=== PATIENT | female | born 1980 | race Caucasian/White ===

== ENCOUNTER 2016-03-26 06:47 | Emergency (ER) ==
[2016-03-26 07:06] LABS: URINE MICRO REVIEW NEEDED? NO; URINE SOURCE CLEAN CATCH
[2016-03-26 07:13] LABS: BILIRUBIN URINE NEGATIVE (NEGATIVE); BLOOD URINE TRACE (NEGATIVE); COLOR YELLOW; GLUCOSE URINE NEGATIVE (NEGATIVE); LEUKOCYTES URINE TRACE (NEGATIVE); NITRITE URINE NEGATIVE (NEGATIVE); PROTEIN URINE TRACE mg/dL (NEGATIVE); SP GRAVITY URINE 1.024; TURBIDITY URINE CLEAR (CLEAR); UROBILINOGEN URINE NORMAL (NORMAL)
[2016-03-26 07:14] LABS: UR EPITHELIAL CELLS <10 /HPF (<10); URINE BACTERIA 2+ /HPF; URINE CULTURE NEEDED? YES; URINE RBC <10 /HPF (<10)
[2016-03-26 07:32] LABS: MANUAL DIFF NEEDED? NO
[2016-03-26 07:37] LABS: BASO% 0.2 % (0.0-0.8); EOS# 0.01 X1000 (0.0-0.7); EOS% 0.2 % (0.0-10.0); HEMATOCRIT 45.9 % (37.0-47.0); HEMOGLOBIN 15.4 g/dL (12.0-16.0); LYMPH# 0.89 X1000 (1.2-3.4); LYMPH% 15.7 % (20.5-51.1); MCH 28.5 PG (27-31); MCHC 33.6 g/dL (33-37); MCV 84.8 FL (81-99); MONO# 0.22 X1000 (0.11-0.59); MONO% 3.9 % (1.7-9.3); MPV 9.7 FL (7.4-10.4); PLT 320 X1000 (130-400); RBC 5.41 XMIL (4.2-5.4)
[2016-03-26 07:58] LABS: AGAP 13; ALBUMIN 3.7 g/dL (3.5-5.0); ALKALINE PHOSPHATASE 50 U/L (32-104); AMYLASE 39 U/L (20-200); BUN 10 mg/dL (8-22); CALCIUM 8.3 mg/dL (8.8-10.2); CHLORIDE 101 mmol/L (98-107); COSMO 271; GOT 16 U/L (10-30); GPT 11 U/L (10-36); LIPASE 24 U/L (13-60); SODIUM 136 mmol/L (136-145); TCO2 22 mmol/L (25-35); TOTAL BILIRUBIN 0.23 mg/dL (0.20-1.00); TOTAL PROTEIN 7.3 g/dL (6.3-8.3)
[2016-03-26] MEDS ORDERED: ZOFRAN IV ONE (08:48)
--- NOTE | 2016-03-26 09:01 | PROVIDER DOCUMENTATION ---
HPI-Abdominal Pain/GI Problem - General Chief Complaint: Abdominal Pain Stated Complaint: ABD PAIN/NAUSEA Time Seen by Provider: 03/26/16 07:13 Source: patient Allergies/Adverse Reactions: Patient Allergies Allergy/AdvReac Type Severity Reaction Status Date / Time No Known Allergies Allergy Verified 03/26/16 07:27 - History of Present Illness-ABD Nature of Presenting Problems: patient is a 35 yo F that presents to the ER with n/v x 3 days with no diarrhea , fever, or dysuria. She took Nuvaring out thinking it was the source. patient reports pain after eating. Abdominal Pain Onset Location: reports: RUQ, LUQ Pain Radiation: reports: no radiation Quality of Pain: reports: aching, cramping Severity in ED: reports: mild Onset/Duration: reports: gradual, 3 days ago Timing: reports: still present, constant Activities at Onset: reports: none Modifying Factors: worse with: eating Associated Symptoms: reports: nausea, vomiting. denies: constipation, diarrhea , fever/chills, genitourinary problems, shortness of breath Similar Symptoms Previously?: No Recently seen or treated by another doctor?: No Review of Systems - Adult - REVIEW OF SYSTEMS - ADULT Constitutional: denies: chills, fever Eyes: reports: no symptoms reported Ears, Nose, Mouth & Throat: denies: ear pain, sinus problem, throat pain, throat swelling Cardiovascular: denies: chest pain, palpitations Respiratory: denies: cough, shortness of breath, wheezing Gastrointestinal: reports: abdominal pain, nausea, vomiting. denies: constipation, diarrhea Genitourinary: denies: dysuria, frequency, hematuria Musculoskeletal: reports: no symptoms reported Integumentary: reports: no symptoms reported Neurological: reports: no symptoms reported Psychiatric: reports: no symptoms reported Endocrine: reports: no symptoms reported Hematologic/Lymphatic: reports: no symptoms reported Allergic/Immunologic: reports: no symptoms reported All Other Systems: Reviewed and Negative Past History - Adult - PAST MEDICAL HISTORY-ADULT Review of Records: reports: Old Records Reviewed, Nursing Assessment Review, Medications Reviewed - PRIOR SURGERIES/PROCEDURES Surgical/Procedure History: reports: none - IMMUNIZATION STATUS Childhood Immunizations: See Nurse Assessment Flu Vaccine: See Nurse Assessment - FAMILY HISTORY Family History: reviewed, not pertinent - SOCIAL HISTORY Smoking: non-smoker Living Situation: family Physical Exam-General - PHYSICAL EXAM-ADULT Initial Vital Signs Reviewed: Yes - CONSTITUTIONAL General Appearance: alert, mild distress - EYES Eyes: PERRL/EOMI, pink conjunctivae - HEAD, EARS, NOSE, MOUTH & THROAT HENMT: normocephalic/atraumatic, moist mucous membranes, normal ENT inspection - NECK Neck: full range of motion, normal inspection. negative: lymphadenopathy - RESPIRATORY Respiratory: lungs clear, normal breath sounds, no respiratory distress, no accessory muscle use - CARDIOVASCULAR Cardiovascular: no gallop, no murmur, tachycardia - GASTROINTESTINAL (ABDOMEN) Abdominal Exam: normal bowel sounds, non tender, no organomegaly, no pulsatile mass, tenderness (mild upper abdomen across). negative: hepatomegaly, spleenomegaly, McBurney's point tenderness, Belle's sign - MUSCULOSKELETAL Back Exam: no CVA tenderness, no vertebral tenderness Extremity: normal range of motion, normal inspection - SKIN Integumentary: normal color, warm/dry - NEUROLOGIC Neurologic: grossly normal, no motor/sensory deficits - PSYCHIATRIC Psych/Mental Status: normal mood/affect, normal thought content, normal thought process, oriented x 3 Progress - PLAN OF CARE/RESULTS Progress/Plan/Lab Results: plan of care-labs, [id number]-[id number] gb ordered Vital Signs Temp Pulse Resp BP Pulse Ox 03/26/16 10:20 90 18 128/78 98 03/26/16 06:50 97.8 F 109 H 16 131/84 99 No Known Allergies Allergy (Verified 03/26/16 07:27) No Home Medications 03/26/16 I&O 03/25/16 03/26/16 03/27/16 06:59 06:59 06:59 Output Total 20 Balance -20 Laboratory 03/26/16 03/26/16 03/26/16 07:15 07:15 06:55 WBC 5.67 RBC 5.41 H Hgb 15.4 Hct 45.9 MCV 84.8 MCH 28.5 MCHC 33.6 RDW Std Deviation 13.3 Plt Count 320 MPV 9.7 Immature Gran % (Auto) 0.0 Neut % (Auto) 80.0 H Lymph % (Auto) 15.7 L [place] % (Auto) 3.9 Eos % (Auto) 0.2 Baso % (Auto) 0.2 Immature Gran # (Auto) 0.00 Neut # (Auto) 4.54 Lymph # (Auto) 0.89 L [place] # (Auto) 0.22 Eos # (Auto) 0.01 Baso # (Auto) 0.01 Sodium 136 Potassium 4.0 Chloride 101 Carbon Dioxide 22 L Anion Gap 13 BUN 10 Creatinine 0.8 Estimated GFR/1.73 m2 > 60 BUN/Creatinine Ratio 13 Glucose 102 Calculated Osmolality 271 Calcium 8.3 L Total Bilirubin 0.23 AST 16 ALT 11 Alkaline Phosphatase 50 Total Protein 7.3 Albumin 3.7 Globulin 3.6 Albumin/Globulin Ratio 1.0 Amylase 39 Lipase 24 Urine Source CLEAN CATCH Urine Color YELLOW Urine Turbidity CLEAR Urine pH 6.0 Ur Specific [place] 1.024 Urine Protein TRACE A Ur Glucose (Stick) NEGATIVE Ur Ketones (Stick) NEGATIVE Urine Blood TRACE A Urine Nitrite NEGATIVE Urine Bilirubin NEGATIVE Urobilinogen Dipstick NORMAL Urine Leukocytes TRACE A Urine WBC (Auto) 10-20 A Urine RBC (Auto) <10 U Epithel Cells (Auto) <10 Urine Bacteria (Auto) 2+ 03/26/16 06:48 WBC RBC Hgb Hct MCV MCH MCHC RDW Std Deviation Plt Count MPV Immature Gran % (Auto) Neut % (Auto) Lymph % (Auto) [place] % (Auto) Eos % (Auto) Baso % (Auto) Immature Gran # (Auto) Neut # (Auto) Lymph # (Auto) [place] # (Auto) Eos # (Auto) Baso # (Auto) Sodium Potassium Chloride Carbon Dioxide Anion Gap BUN Creatinine Estimated GFR/1.73 m2 BUN/Creatinine Ratio Glucose Calculated Osmolality Calcium Total Bilirubin AST ALT Alkaline Phosphatase Total Protein Albumin Globulin Albumin/Globulin Ratio Amylase Lipase Urine Source Cancelled Urine Color Cancelled Urine Turbidity Cancelled Urine pH Cancelled Ur Specific [place] Cancelled Urine Protein Cancelled Ur Glucose (Stick) Cancelled Ur Ketones (Stick) Cancelled Urine Blood Cancelled Urine Nitrite Cancelled Urine Bilirubin Cancelled Urobilinogen Dipstick Cancelled Urine Leukocytes Cancelled Urine WBC (Auto) Cancelled Urine RBC (Auto) Cancelled U Epithel Cells (Auto) Cancelled Urine Bacteria (Auto) Cancelled Orders Category Date Time Status [ED: Urine Bedside] ORDERED Care 03/26/16 06:57 Active US GB < RUQ (LIMITED) [US] Stat Exams 03/26/16 08:46 Draft AMYLASE [CHEM] Stat Lab 03/26/16 07:15 Completed CBC WITH ELECTRONIC DIFF [HEME] Stat Lab 03/26/16 07:15 Completed COMPREHENSIVE METABOLIC PANEL [CHEM] Stat Lab 03/26/16 07:15 Completed LIPASE [CHEM] Stat Lab 03/26/16 07:15 Completed URINALYSIS W/POSS RFLX CULT [URINALYSIS] Stat Lab 03/26/16 06:55 Completed URINE CULTURE [RM] Routine Lab 03/26/16 07:31 Received Ondansetron [Zofran] Med 03/26/16 08:48 Discontinued 4 mg IV NOW ONE - REASSESSMENT Reassessment #1 Time Reassessed: 10:45 Status: improving Reassessment Comment: feeling better - ULTRASOUND (By Radiology) 1 US Study: Gallbladder Impression: Normal US Results: negative per Departure - Departure Time of Disposition Order: 10:49 DIAGNOSIS: Abdominal pain, Nausea in adult patient, GERD (gastroesophageal reflux disease) , Viral illness Disposition: HOME 01 Certified Medical Emergency: Emergent Condition: Stable Additional Instructions: push fluids f/u with pcp ED Follow Up Instructions: You have been treated by a care provider in the Emergency Department. These instructions are being provided to you so you can have an understanding of how to care for yourself upon discharge. Upon discharge from the Emergency Department, you are responsible for making arrangements for follow-up care by a physician of your choice. Take all prescribed medications as directed. Return to the Emergency Department immediately for any new or worsening symptoms. You may call the Physician Referral phone number at [phone] to obtain a list of Physicians who are taking new patients. Prescriptions: Ondansetron [Zofran Odt] 4 mg PO Q6-8H PRN PRN #20 tab.rapdis PRN Reason: Vomiting Referrals: None,PCP [Primary Care Provider] - Sandra Silverio MD [STAFF PHYSICIAN] - Instructions: Nausea, Adult, Abdominal Pain, Women, Food Choices for Gastroesophageal Reflux Disease, Adult, Gastroesophageal Reflux Disease, Adult Attestation - Scribe Verification/Attestation Scribe:: Baljit Farooq Acting as Scribe for:: Narinder Hooker Scribe documention review:: This chart was documented by a scribe and accurately reflects the service the provider performed and the decisions made by the provider. Physician Attestation - Physician Attestation I, the provider, attest to the following statement:: Narinder Hooker Physician documentation Attestation:: This documentation recorded by the scribe accurately reflects the service I personally performed and the decisions made by me.
[2016-03-26 10:20] VITALS: BP 128/78
--- NOTE | 2016-03-26 10:26 | Diag Imaging Result Document ---
PROCEDURE NAME: US GB < RUQ (LIMITED) - 03/26/2016 RIGHT UPPER QUADRANT ULTRASOUND, 03/26/2016: COMPARISON: None. FINDINGS: The liver, gallbladder, pancreas and right kidney are normal. The common bile duct measures 4 mm. Aorta, IVC, and main portal vein are patent. IMPRESSION: Negative exam.
== END 2016-03-26 11:10 | disposition home or self-care (01) ==
LOC: ED 06:47
DX: K21.9 Gastro-esophageal reflux disease without esophagitis (principal); B34.9 Viral infection, unspecified; R10.11 Right upper quadrant pain; R11.2 Nausea with vomiting, unspecified; R10.12 Left upper quadrant pain; R00.0 Tachycardia, unspecified; R10.819 Abdominal tenderness, unspecified site
CPT/HCPCS: 76705; 80053; 81001; 82150; 83690; 85025; 87088; 96374; J2405